=== PATIENT | female | born 1995 | race Two or more races ===

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

== ENCOUNTER 2022-09-19 01:33 | Emergency (ER) | payer MEDICAID ==
[~2022-09-19] VITALS: Ht 190.5 cm; Wt 159.0 kg
[2022-09-19 01:41] VITALS: BP 165/89
== END 2022-09-19 03:15 | disposition left against medical advice (07) ==
LOC: EDBD 01:33 → ER 01:33
DX: M25.551 Pain in right hip (principal); Z53.21 Procedure and treatment not carried out due to patient leaving prior to being seen by health care provider